=== PATIENT | male | born 1990 | race Caucasian/White ===

== ENCOUNTER 2016-11-01 09:22 | Emergency (ER) | payer SELFPAY ==
[~2016-11-01] VITALS: Ht 188 cm; Wt 93.0 kg
[2017-01-23] MEDS ORDERED: IMITREX50 MG PO (19:13)
== END 2016-11-01 11:51 | disposition short-term general hospital (02) ==
LOC: ER 09:22
DX: F10.129 Alcohol abuse with intoxication, unspecified (principal); R11.2 Nausea with vomiting, unspecified
CPT/HCPCS: G0480; J1885; J2060; J2405